=== PATIENT | male | born 1965 | race African-American/Black ===

== ENCOUNTER 2017-06-19 08:13 | Outpatient (CLI) | payer OTHER | END 2017-06-19 08:14 | disposition home or self-care (01) | LOC: BICMRI 08:13 | PROVIDERS: ATTEND Emergency Medicine | DX: M23.91 Unspecified internal derangement of right knee (principal); M25.461 Effusion, right knee ==

== ENCOUNTER 2017-07-24 13:35 | Outpatient (CLI) | payer OTHER ==
[2017-07-24 14:18] LABS: Hemoglobin 14.8 g/dL (14.0-18.0); Mean Corpuscular HGB CONC 34.3 g/dL (32.0-36.0); Mean Corpuscular Hemoglobin 30.6 pg (27.0-31.0); Mean Corpuscular Volume 89.3 fl (80.0-94.0); Mean Platelet Volume 6.8 fL (7.4-10.4); Platelet Count 262 thou/uL (130-400); RBC Distribution Width 12.1 % (11.5-14.5); Red Blood Cell (RBC) Count 4.83 mill/uL (4.70-6.10); White Blood Cell (WBC) Count 8.5 thou/uL (4.8-10.8)
--- NOTE | 2017-07-25 07:37 | EKG ---
Test Reason : Blood Pressure : / mmHG Vent. Rate : 074 BPM Atrial Rate : 074 BPM P-R Int : 190 ms QRS Dur : 096 ms QT Int : 372 ms P-R-T Axes : 056 056 002 degrees QTc Int : 412 ms Normal sinus rhythm T wave abnormality, consider inferior ischemia Early repolarization Abnormal ECG No previous ECGs available Confirmed by DR. Anthony GARDNER ([id number]) on 07/25/2017 7:36:22 AM Referred By: ALECIA Confirmed By:DR. Anthony GARDNER
== END 2017-07-24 13:36 | disposition home or self-care (01) ==
LOC: LABBT 13:35
PROVIDERS: ATTEND Orthopaedic Surgery
DX: Z01.818 Encounter for other preprocedural examination (principal); S83.241A Other tear of medial meniscus, current injury, right knee, initial encounter
CPT/HCPCS: 85027; 93005; 93010

== ENCOUNTER 2017-07-25 07:00 | Day surgery (SDC) | payer OTHER ==
[2017-07-24 13:51] VITALS: BMI 37.2
[2017-07-25] MEDS ORDERED: CEFAZOLIN/Water 2 GM/20 ML SYRINGE ONE (08:01)
[2017-07-25] MEDS ORDERED: Bupivacaine HCl 0.5%/Epinephrine 1:200,000/PF 30 ml Vial ONE (08:31)
[2017-07-25] MEDS ORDERED: Lidocaine 1% (PF) 30 ML VIAL ONE (08:31)
[2017-07-25] MEDS ORDERED: Fentanyl 100 MCG/2 ML VIAL ONE ×3 (09:01→10:25)
--- NOTE | 2017-07-25 10:06 | OP ---
DATE OF PROCEDURE: 07/25/2017 PREOPERATIVE DIAGNOSES: Right medial meniscus tear without full thickness cartilage loss, tricompartmental changes POSTOPERATIVE DIAGNOSES: 1. Complex medial meniscus tear. 2. Grade IV high grade tear of medial femoral condyle, grade I patellofemoral changes, lno ateral compartment no changes noted. PROCEDURE PERFORMED: Arthroscopic debridement and shaving. STAFF: Rufus Mathias M.D. [employer]: None. ANESTHESIA: Adams. The patient received an LMA with 30 mL of Marcaine with epinephrine intraarticularly 30 mL of lidocaine plain. TOURNIQUET TIME: 13 minutes. ANTIBIOTICS: Ancef 2 grams. COMPLICATIONS: None. HISTORY OF PRESENT ILLNESS: Mr. 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 The patient had MRI evidence of medial meniscus tear without any obvious full thickness cartilage defects, intact ligaments. I discussed the risks and benefits of arthroscopic evaluation for debridement and shaving, possible meniscectomy. The patient understood the risks and benefits of the procedure, he elected to proceed. PROCEDURE IN DETAIL: A timeout was performed designating the patient's right lower extremity as the operative site based on site, consents, markings. After completion of timeout, the patient had anterolateral working portal, anteromedial portal placing. Excised the fat pad, looked at ACL and PCL which were intact. Patellofemoral compartment had some grade 1 changes, early grade II changes. There is nothing in the medial lateral gutters. I looked in the lateral compartment. There was some fraying and maybe some grade 1 changes, but no full thickness or large defects noted. I then looked in the medial compartment. He did have some significant grade III changes almost grade 4 changes in his entire medial femoral condyle with a degenerative meniscal tear. I debrided the meniscus tear, cleaned some of the frayed edges of the patellofemoral medial femoral condyle. I then washed. I closed the wounds with 3-0 nylon, injected with lidocaine plain, washed out all the Marcaine at the completion of procedure. I closed the remainder of the anterolateral incision and let the tourniquet down after 13 minutes. The patient will be weightbear as tolerated. Discharged home with pain medication. I will see him back in 2 weeks. [id number]
[2017-07-25] MEDS ORDERED: Labetalol HCl 100 MG/20 ML VIAL ONE (10:08)
[2017-07-25] MEDS ORDERED: Lidocaine 1% PF 5 ML VIAL ONE (12:47)
[2017-07-25] MEDS ORDERED: Ketorolac Tromethamine 30 MG/ML VIAL ONE (12:47)
[2017-07-25] MEDS ORDERED: PROPOFOL 200 MG/20 ML VIAL ONE (12:47)
== END 2017-07-25 12:30 | disposition home or self-care (01) ==
LOC: SDC 07:00
PROVIDERS: ATTEND Orthopaedic Surgery
PROC: 0SBC4ZZ Excision of Right Knee Joint, Percutaneous Endoscopic Approach (ICD-10-PCS; principal; 2017-07-25)
DX: S83.231A Complex tear of medial meniscus, current injury, right knee, initial encounter (principal); I10 Essential (primary) hypertension; J43.9 Emphysema, unspecified; G47.30 Sleep apnea, unspecified; F17.290 Nicotine dependence, other tobacco product, uncomplicated; Y93.02 Activity, running; Z99.89 Dependence on other enabling machines and devices; Z79.82 Long term (current) use of aspirin; Z79.899 Other long term (current) drug therapy; Z98.890 Other specified postprocedural states
CPT/HCPCS: 96374; 96375; G8978-GP-CI; G8979-GP-CI; G8980-GP-CI; J0670; J1885; J2001; J2704; J3010